=== PATIENT | male | born 1955 | race African-American/Black ===

== ENCOUNTER 2022-01-26 13:52 | Emergency (ER) | payer MEDICARE, OTHER ==
[~2022-01-26] VITALS: Ht 172.7 cm; Wt 92.5 kg
[2022-01-26 14:59] LABS: Basophils # (auto) 0.1 10 ^3/uL (0-0.2); Basophils % (auto) 0.8 % (0.0-2.0); Eosinophils # (auto) 0.1 10 ^3/uL (0-0.8); Eosinophils % (auto) 1.8 % (0.0-7.0); Hematocrit 40.2 % (41.0-53.0); Hemoglobin 13.2 g/dL (13.5-17.5); Lymphocytes # (auto) 1.5 10 ^3/uL (0.4-5.4); Lymphocytes % (auto) 22.6 % (10.0-50.0); Mean Corpuscular Hemoglobin 29.6 pg (28.0-32.0); Mean Corpuscular Hgb Conc. 32.8 g/dL (32.0-36.0); Monocytes # (auto) 0.6 10 ^3/uL (0-1.3); Monocytes % (auto) 8.8 % (0.0-12.0); Neutrophils # (auto) 4.4 10 ^3/uL (1.6-8.6); Red Blood Cells 4.47 10^6/uL (4.5-5.90); Red Cell Distribution Width 14.5 % (11.8-14.3); White Blood Cell 6.7 10^3/uL (4.4-10.8)
[2022-01-26 15:15] LABS: Albumin 3.8 g/dL (3.4-5.0); Calcium 9.1 mg/dL (8.5-10.1); Magnesium 2.6 mg/dL (1.6-2.6); Potassium 3.6 mmol/L (3.5-5.1)
[2022-01-26 15:17] LABS: BUN/Creatinine Ratio 11.1
[2022-01-26 15:20] LABS: Bilirubin, Total 0.8 mg/dL (0.2-1.0); Total Protein 7.7 g/dL (6.4-8.2)
[2022-01-26 15:42] LABS: Urine Bacteria NONE SEEN /hpf (None Seen); Urine Blood Negative /uL (Negative); Urine Mucus FEW (None Seen); Urine Specific Gravity 1.026 (1.001-1.035); Urine WBC 2 /hpf (0 - 3)
[2022-01-26] MEDS ORDERED: LACTATED RINGER'S 1,000 ML IV ONE (16:30)
[2022-01-26] MEDS ORDERED: SODIUM CHLORIDE 0.9% 1,000 ML IV ONE (17:00)
[2022-01-26 17:07] VITALS: BP 142/83
== END 2022-01-26 17:22 | disposition home or self-care (01) ==
LOC: ER 13:52
DX: R42 Dizziness and giddiness (principal); I10 Essential (primary) hypertension; Z88.0 Allergy status to penicillin
CPT/HCPCS: 36415; 71046; 80053; 81001; 83735; 83880; 84484; 85025; 93005; 99285; J7030

== ENCOUNTER 2024-03-16 19:38 | Emergency (ER) | payer OTHER, MEDICARE ==
[~2024-03-16] VITALS: Ht 172.7 cm; Wt 100.9 kg
[2024-03-16 20:35] VITALS: BP 131/83; PULSE 76; RESP 17; TEMP 98.1; O2SAT 94
[2024-03-16] MEDS: methylPREDNISolone SOD SUCC 125 MG/2 ML VL IM ONE (21:12)
== END 2024-03-16 21:37 | disposition home or self-care (01) ==
LOC: ER 19:38
DX: S16.1XXA Strain of muscle, fascia and tendon at neck level, initial encounter (principal); S80.01XA Contusion of right knee, initial encounter; I10 Essential (primary) hypertension; Z88.0 Allergy status to penicillin; W10.8XXA Fall (on) (from) other stairs and steps, initial encounter; Y93.89 Activity, other specified; Y92.89 Other specified places as the place of occurrence of the external cause; Y99.8 Other external cause status
CPT/HCPCS: 73562; 96372; 99283; J2919

== ENCOUNTER 2024-06-12 09:00 | Inpatient (IN) | payer OTHER ==
[2024-06-12] VITALS (7 sets, daily range): BP systolic 107–137; BP diastolic 73–91; PULSE 80–90; RESP 18–20; TEMP 97.6–98.2; O2SAT 92–97
[~2024-06-12] VITALS: Ht 172.7 cm; Wt 101.8 kg
[2024-06-12 10:12] LABS: Chloride 104 mmol/L (98-107); Potassium 3.3 mmol/L (3.5-5.1); Sodium 141 mmol/L (136-145)
[2024-06-12 10:13] LABS: Anion Gap 10 (5-15); Calcium 10.1 mg/dL (8.7-10.4); Carbon Dioxide 27 mmol/L (20-31)
[2024-06-12 10:18] LABS: BUN/Creatinine Ratio 13.3 (10.0-20.0); Blood Urea Nitrogen 27 mg/dL (9-23); Glucose 100 mg/dL (74-106)
[2024-06-12 10:30] LABS: Basophils # (auto) 0.1 10 ^3/uL (0-0.2); Basophils % (auto) 0.8 % (0.0-2.0); Eosinophils # (auto) 0.1 10 ^3/uL (0-0.8); Hemoglobin 15.7 g/dL (13.5-17.5); Lymphocytes # (auto) 1.8 10 ^3/uL (0.4-5.4); Lymphocytes % (auto) 18.4 % (10.0-50.0); Mean Corpuscular Hemoglobin 30.4 pg (28.0-32.0); Mean Corpuscular Hgb Conc. 33.3 g/dL (32.0-36.0); Mean Corpuscular Volume 91.3 fL (80.0-100.0); Monocytes # (auto) 0.9 10 ^3/uL (0-1.3); Monocytes % (auto) 9.7 % (0.0-12.0); Neutrophils # (auto) 6.9 10 ^3/uL (1.6-8.6); Neutrophils % (auto) 70.1 % (37.0-80.0); Platelet Count (auto) 320 10^3/uL (140-450); Red Blood Cells 5.15 10^6/uL (4.5-5.90); White Blood Cell 9.8 10^3/uL (4.4-10.8)
[2024-06-12] MEDS ORDERED: ONDANSETRON HCL 4 MG/2 ML VIAL IV PRN (12:30)
[2024-06-12] MEDS ORDERED: NITROGLYCERIN 0.4 MG SL TAB SL PRN (12:30)
[2024-06-12] MEDS ORDERED: DOCUSATE SOD 100 MG CAP PO PRN (12:30)
[2024-06-12] MEDS ORDERED: MORPHINE SULFATE INJ 2 MG/ml SYRG IV PRN (12:30)
[2024-06-12] MEDS ORDERED: ACETAMINOPHEN 325 MG TAB PO PRN (12:30)
[2024-06-12] MEDS ORDERED: CYCL-611 PO (12:34)
[2024-06-12] MEDS ORDERED: DONE10TA91 PO (12:34)
[2024-06-12] MEDS ORDERED: HYDR-4072 PO (12:34)
[2024-06-12] MEDS ORDERED: DIPH-751 PO (12:34)
[2024-06-12] MEDS ORDERED: ATOR10TA52 PO (12:34)
[2024-06-12] MEDS ORDERED: GABA800T97 PO (12:34)
[2024-06-12] MEDS ORDERED: ASPI-325 PO (12:34)
[2024-06-12] MEDS ORDERED: CYCLOBENZAPRINE HCL 10 MG TAB PO PRN (12:45)
[2024-06-12] MEDS: SODIUM CHLOR 0.9% PF (SALINE LOCK) 10ML VIAL/SYR IV SCH (14:19)
[2024-06-12 15:57] LABS: Magnesium 2.1 mg/dL (1.6-2.6)
[2024-06-12 15:59] LABS: Phosphorus 3.2 mg/dL (2.4-5.1)
[2024-06-12 16:04] LABS: INR 1.12 (0.9-1.15); Partial Thromboplastin Time 29.9 SEC (24.5-34.5); Prothrombin Time 11.8 sec (9.3-11.8)
[2024-06-12 16:37] LABS: Urine Bacteria FEW /hpf (None Seen); Urine Blood Negative /uL (Negative); Urine Clarity Turbid (Clear); Urine Color Yellow (Yellow); Urine Hyaline Cast MANY /lpf (0 - 2); Urine Mucus FEW (None Seen); Urine Protein, UAD 1+ (Negative); Urine Specific Gravity 1.029 (1.001-1.035); Urine Urobilinogen 2 mg/dL (Negative); Urine WBC 7 /hpf (0 - 3); Urine pH 5.5 (5.0-9.0)
[2024-06-12] MEDS: POTASSIUM CHL 20 Meq TABLET PO ONE (16:46)
[2024-06-12 16:57] LABS: Amphetamine Screen, Urine Neg (NEGATIVE); Barbiturate Scree,Urine Neg (NEGATIVE); Benzodiazephine Screen, Urine Neg (NEGATIVE); Cannabinoid Screen, Urine Neg (NEGATIVE); Cocaine Screen, Urine Neg (NEGATIVE); Opiate Scree,Urine Neg (NEGATIVE); Phencyclidine Screen, Urine Neg (NEGATIVE)
[2024-06-12] MEDS ORDERED: DICL1GEL73 TOP (17:56)
[2024-06-12] MEDS ORDERED: FLUT50SP31 NAS (17:56)
[2024-06-12] MEDS: SODIUM CHLORIDE 0.9% 1,000 ML IV ONE (18:18)
[2024-06-12] MEDS: MAGNESIUM SULFATE 1GM/100ML 100 ML IV SCH (18:37)
[2024-06-12] MEDS ORDERED: diphenhdrAMINE HCL 25 MG CAP PO PRN (22:00)
[2024-06-12] MEDS: ATORVASTATIN 20 MG TAB PO SCH (22:37)
[2024-06-12] MEDS: GABAPENTIN 400 MG CAP PO SCH (22:38)
[2024-06-12] MEDS: DONEPEZIL HYDROCHLORIDE 5 MG TAB PO SCH (22:38)
[2024-06-12] MEDS: MAGNESIUM SULFATE 1GM/100ML 100 ML IV ONE (23:00)
[2024-06-13] VITALS (9 sets, daily range): BP systolic 120–149; BP diastolic 78–91; PULSE 73–88; RESP 17–21; TEMP 97.7–98.2; O2SAT 92–95
[2024-06-13 07:59] LABS: Alanine Aminotransferase 20 U/L (7-40); Alkaline Phosphatase 96 U/L (46-116); Anion Gap 9 (5-15); BUN/Creatinine Ratio 14.1 (10.0-20.0); Blood Urea Nitrogen 21 mg/dL (9-23); Calcium 9.9 mg/dL (8.7-10.4); Carbon Dioxide 25 mmol/L (20-31); Chloride 107 mmol/L (98-107); Glucose 98 mg/dL (74-106); Magnesium 2.6 mg/dL (1.6-2.6); Potassium 3.7 mmol/L (3.5-5.1); Sodium 141 mmol/L (136-145)
[2024-06-13 08:00] LABS: Albumin 4.3 g/dL (3.2-4.8); Aspartate Aminotransferase 15 U/L (13-40); Bilirubin, Total 0.9 mg/dL (0.2-1.0); Total Protein 7.5 g/dL (5.7-8.2)
[2024-06-13 08:18] LABS: Basophils # (auto) 0.1 10 ^3/uL (0-0.2); Basophils % (auto) 0.6 % (0.0-2.0); Eosinophils # (auto) 0.1 10 ^3/uL (0-0.8); Eosinophils % (auto) 1.2 % (0.0-7.0); Hematocrit 45.6 % (41.0-53.0); Hemoglobin 15.2 g/dL (13.5-17.5); Lymphocytes # (auto) 1.5 10 ^3/uL (0.4-5.4); Lymphocytes % (auto) 13.7 % (10.0-50.0); Mean Corpuscular Hemoglobin 30.8 pg (28.0-32.0); Mean Corpuscular Hgb Conc. 33.4 g/dL (32.0-36.0); Mean Corpuscular Volume 92.2 fL (80.0-100.0); Monocytes # (auto) 1.2 10 ^3/uL (0-1.3); Monocytes % (auto) 10.8 % (0.0-12.0); Neutrophils # (auto) 8.2 10 ^3/uL (1.6-8.6); Neutrophils % (auto) 73.7 % (37.0-80.0); Nucleated Red Blood Cells % 0.1 %; Platelet Count (auto) 278 10^3/uL (140-450); Red Blood Cells 4.95 10^6/uL (4.5-5.90); Red Cell Distribution Width 14.8 % (11.8-14.3); White Blood Cell 11.2 10^3/uL (4.4-10.8)
[2024-06-13] MEDS: ASPirin-EC 81 mg tab PO SCH (09:59)
[2024-06-13] MEDS ORDERED: ATORVASTATIN 20 MG TAB PO SCH (10:00)
[2024-06-14] VITALS (12 sets, daily range): BP systolic 120–148; BP diastolic 71–91; PULSE 75–93; RESP 17–20; TEMP 97.4–98.3; O2SAT 91–95
[2024-06-14 07:21] LABS: Basophils # (auto) 0 10 ^3/uL (0-0.2); Basophils % (auto) 0.4 % (0.0-2.0); Eosinophils # (auto) 0.2 10 ^3/uL (0-0.8); Eosinophils % (auto) 2.1 % (0.0-7.0); Hematocrit 43.9 % (41.0-53.0); Hemoglobin 14.7 g/dL (13.5-17.5); Lymphocytes # (auto) 1.7 10 ^3/uL (0.4-5.4); Mean Corpuscular Hemoglobin 30.8 pg (28.0-32.0); Mean Corpuscular Hgb Conc. 33.6 g/dL (32.0-36.0); Mean Corpuscular Volume 91.7 fL (80.0-100.0); Monocytes % (auto) 10.5 % (0.0-12.0); Neutrophils # (auto) 6.8 10 ^3/uL (1.6-8.6); Platelet Count (auto) 273 10^3/uL (140-450); Red Blood Cells 4.79 10^6/uL (4.5-5.90); Red Cell Distribution Width 14.5 % (11.8-14.3); White Blood Cell 9.8 10^3/uL (4.4-10.8)
[2024-06-14 07:31] LABS: Alanine Aminotransferase 27 U/L (7-40); Albumin 4.1 g/dL (3.2-4.8); Alkaline Phosphatase 92 U/L (46-116); Anion Gap 8 (5-15); Aspartate Aminotransferase 19 U/L (13-40); BUN/Creatinine Ratio 10.5 (10.0-20.0); Blood Urea Nitrogen 13 mg/dL (9-23); Calcium 9.6 mg/dL (8.7-10.4); Carbon Dioxide 27 mmol/L (20-31); Chloride 105 mmol/L (98-107); Glucose 91 mg/dL (74-106); Magnesium 2.2 mg/dL (1.6-2.6); Phosphorus 2.5 mg/dL (2.4-5.1); Potassium 3.2 mmol/L (3.5-5.1); Sodium 140 mmol/L (136-145)
[2024-06-14 07:32] LABS: Bilirubin, Total 1.1 mg/dL (0.2-1.0); Total Protein 7.2 g/dL (5.7-8.2)
[2024-06-14 08:54] LABS: Hepatitis B Surface Antigen Negative (Negative)
[2024-06-14 09:15] LABS: Hepatitis C Antibody Negative (Negative)
[2024-06-14] MEDS: POTASSIUM EFFERVESENT TAB 25 MEQ PO ONE (10:35)
[2024-06-14] MEDS: ENOXAPARIN SOD 40 MG/0.4 ML SYRINGE SC SCH (10:36)
[2024-06-14] MEDS: CYANOCOBALAMIN 500 MCG TAB PO ONE (14:00)
[2024-06-14] MEDS: HYDROcodone-ACET 5/325MG TAB PO PRN (14:01)
[2024-06-15 01:00] VITALS: BP 148/88; PULSE 75; RESP 20; TEMP 97.4; O2SAT 94
[2024-06-15 05:00] VITALS: BP 140/94; PULSE 86; RESP 19; TEMP 98.3; O2SAT 93
[2024-06-15 06:06] LABS: RPR Non Reactive (Non Reactive)
[2024-06-15 07:09] VITALS: O2SAT 93
[2024-06-15 08:00] VITALS: PULSE 85; PULSE 91; RESP 20; O2SAT 96
[2024-06-15 08:47] VITALS: BP 132/93; PULSE 97; RESP 17; TEMP 98; O2SAT 93
[2024-06-15] MEDS: CYANOCOBALAMIN 500 MCG TAB PO SCH (10:22)
[2024-06-15] MEDS: POTASSIUM EFFERVESENT TAB 25 MEQ PO ONE (12:23)
[2024-06-15] MEDS ORDERED: ATORVASTATIN 20 MG TAB PO SCH (22:00)
== END 2024-06-15 14:00 | disposition home or self-care (01) | DRG 73 ==
LOC: ER 09:00 → TELE 12:28 → TELE-WESTW 12:34
PROVIDERS: ADMIT Nurse Practitioner Family; ATTEND Student in an Organized Health Care Education/Training Program
PROC: 5A09357 Assistance with Respiratory Ventilation, Less than 24 Consecutive Hours, Continuous Positive Airway Pressure (ICD-10-PCS; principal; 2024-06-12)
DX: G90.9 Disorder of the autonomic nervous system, unspecified (principal); N17.0 Acute kidney failure with tubular necrosis; G45.9 Transient cerebral ischemic attack, unspecified; I45.2 Bifascicular block; E87.6 Hypokalemia; E78.5 Hyperlipidemia, unspecified; G47.33 Obstructive sleep apnea (adult) (pediatric); G62.9 Polyneuropathy, unspecified; G89.29 Other chronic pain; I10 Essential (primary) hypertension; G30.9 Alzheimer's disease, unspecified; K21.9 Gastro-esophageal reflux disease without esophagitis; D72.829 Elevated white blood cell count, unspecified; G25.0 Essential tremor; J44.9 Chronic obstructive pulmonary disease, unspecified; I25.10 Atherosclerotic heart disease of native coronary artery without angina pectoris; Z96.651 Presence of right artificial knee joint; Z88.0 Allergy status to penicillin; I25.2 Old myocardial infarction; Z87.891 Personal history of nicotine dependence; T42.6X5A Adverse effect of other antiepileptic and sedative-hypnotic drugs, initial encounter; Y92.89 Other specified places as the place of occurrence of the external cause; F02.80 Dementia in other diseases classified elsewhere, unspecified severity, without behavioral disturbance, psychotic disturbance, mood disturbance, and anxiety; G20.A1 Parkinson's disease without dyskinesia, without mention of fluctuations
CPT/HCPCS: 36415; 70450; 70551; 80048; 80053; 80061; 80307; 81001; 82306; 82607; 82746; 82962; 83036; 83735; 84100; 84443; 84484; 85025; 85048; 85610; 85730; 86592; 86703; 86803; 87340; 87493; 93005; 93306; 93886; 94660; 95819; 99291; G0378